=== PATIENT | male | born 1960 | race Caucasian/White ===

== ENCOUNTER → 2018-02-01 | Outpatient (CLI) | payer BC ==
[~2018-02-01] MED LIST: AMOX875T PO; ATOR10TA82 PO; LOSA100T2 PO
[2018-02-01 12:20] LABS: BASO % 0.4 %; BASO ABS # 0.03 K/uL (0-0.2); EOS % 2.3 %; EOS ABS # 0.16 K/uL (0-0.5); HEMATOCRIT 46.3 % (42-52); HEMOGLOBIN 16.6 g/dL (14.0-18.0); IG# 0.12 K/uL (0.00-0.02); LYMPH % 24.1 %; LYMPH ABS # 1.69 K/uL (1.2-3.4); MEAN CORPUSCULAR HEMOGLOBIN 31.6 pg (25-34); MEAN CORPUSCULAR HGB CONC 35.9 g/dl (32-36); MONO % 11.9 %; MONO ABS # 0.83 K/uL (0.11-0.59); NEUT % 59.6 %; NEUT ABS # 4.17 K/uL (1.4-6.5); PLATELET COUNT 288 K/uL (130-400); RED CELL DISTRIBUTION WIDTH CV 13.6 % (11.5-14.5); RED CELL DISTRIBUTION WIDTH SD 43.9 fL (36.4-46.3)
[2018-02-01 12:40] LABS: ALBUMIN 4.2 gm/dl (3.4-5.0); ALT/SGPT 47 U/L (12-78); AST/SGOT 31 U/L (15-37); BLOOD UREA NITROGEN 13 mg/dl (7-18); CALCIUM 9.6 mg/dl (8.5-10.1); CARBON DIOXIDE 29 mmol/L (21-32); CHOLESTEROL 181 mg/dl (0-200); CREATININE 1.11 mg/dl (0.60-1.40); GLUCOSE 105 mg/dl (70-99); SODIUM 139 mmol/L (136-145)
[2018-02-01 12:42] LABS: HEMOGLOBIN A1C 5.8 % (4.5-5.6)
[2018-02-01 12:45] LABS: ALKALINE PHOSPHATASE 95 U/L (45-117); LDL CHOLESTEROL CALCULATED 125 mg/dl; TOTAL PROTEIN 7.3 gm/dl (6.4-8.2)
== END | disposition home or self-care (01) ==
LOC: C.LABBFT 09:17
PROVIDERS: ATTEND Internal Medicine
DX: I10 Essential (primary) hypertension (principal); E78.00 Pure hypercholesterolemia, unspecified; R73.01 Impaired fasting glucose; Z12.5 Encounter for screening for malignant neoplasm of prostate